=== PATIENT | male | born 1930 | race Caucasian/White ===

== ENCOUNTER 2018-02-15 03:49 | Inpatient (IN) | payer MEDICARE, BC ==
[~2018-02-15] VITALS: Ht 190.5 cm; Wt 86.2 kg
[2018-02-15] VITALS (7 sets, daily range): BP systolic 105–145; BP diastolic 54–75
[~2018-02-15 03:49] MED LIST: ALLOPURINOL 30300 M2 PO; ASPIR 8181 MG PO; AZITHROMYCIN 2250 MG PO; CEFDINIR300 MG PO; COUMADIN 4 MG TA4 M1 PO; LASIX 40 MG TAB40 M2 PO; LEVAQUIN 500 M500 M1 PO; LISINOPRIL5 MG PO; VENTOLIN HFA 1818 GM INH
[2018-02-15 04:14] LABS: HEMATOCRIT 45.9 % (42.0-52.0); HEMOGLOBIN 15.3 gm/dL (14.0-18.0); MCH 32.6 pg (26.0-34.0); MCHC 33.4 g/dL (28.0-37.0); MCV 97.6 fL (80.0-100.0); MPV 8.3 fl. (7.2-11.1); NUCLEATED RBCS 0 /100WBC; PLATELET COUNT* 174 thou/uL (150-400); RDW-CV 14.4 % (10.5-14.5); WBC 16.1 thou/uL (4.0-11.0)
[2018-02-15 04:26] LABS: ANION GAP 12 mmol/L (7-16); BUN 14 mg/dL (7-18); CALCIUM 8.8 mg/dL (8.5-10.1); CHLORIDE 103 mmol/L (98-107); CO2 25 mmol/L (21-32); CREATININE 1.2 mg/dL (0.6-1.3); GLUCOSE 162 mg/dL (70-99); SODIUM 140 mmol/L (136-145)
[2018-02-15 04:27] LABS: APTT 33.7 Seconds (25.0-31.3); INR 1.8; PROTIME 17.5 Seconds (9.20-11.50)
[2018-02-15 04:45] LABS: ALBUMIN 3.7 g/dL (3.4-5.0); ALKALINE PHOSPHATASE 85 U/L (46-116); NT-PRO BRAIN NAT PEPTIDE 1446 pg/mL (<300); SGOT 24 U/L (15-37); SGPT 25 U/L (30-65); TOTAL BILIRUBIN 2.9 mg/dL (<0.1-1.0); TOTAL PROTEIN 7.3 g/dL (6.4-8.2); TROPONIN-I LEVEL <0.06 ng/mL (<0.06)
[2018-02-15 05:06] LABS: URINE BILIRUBIN NEGATIVE (Negative); URINE BLOOD TRACE (Negative); URINE CLARITY CLEAR; URINE COLOR YELLOW; URINE GLUCOSE-RANDOM NEGATIVE (Negative); URINE KETONES NEGATIVE (Negative); URINE LEUKOCYTES-REFLEX NEGATIVE (Negative); URINE NITRITE-REFLEX NEGATIVE (Negative); URINE PROTEIN 1+ (Negative); URINE SPECIFIC GRAVITY 1.015 (1.005-1.030)
[2018-02-15 05:35] LABS: ABSOLUTE LYMPHOCYTES 1.6 thou/uL (0.8-5.3); ABSOLUTE NEUTROPHILS 13.5 thou/uL (1.6-8.1); ANISOCYTOSIS 1+; PLATELET ESTIMATE ADEQUATE; POIKILOCYTOSIS 1+
--- NOTE | 2018-02-15 11:21 | EKG ---
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1930 Requested By: Javon Gross Order Number: [id number] MD: London Castro Measurements Intervals [place] Rate: 96 P: 0 LA: 77 QRS: 7 QRSD: 152 T: -58 QT: 405 QTc: 512 Interpretive Statements Ventricular-paced complexes ventricular fusion beats noted No further rhythm analysis attempted due to paced rhythm Compared to ECG 06/16/2017 08:39:48 intrinsic beats now noted Electronically Signed On 02-15-2018 11:21:12 CDT by London Castro [email or web address] <ELECTRONICALLY SIGNED> By: London Castro MD, [facility] 02/15/18 1121 [id number] London Castro MD, [facility] /EPI
--- NOTE | 2018-02-15 16:43 | 2DMMODE ---
[place] [address] 2 D/M-MODE ECHOCARDIOGRAM Name: ELIZABETH RAMIREZ JR Room: [address] IN [facility]#: [id number] Admission: 02/15/18 Attend Phys: Dain Galvan, Discharge: Date of : [birth year] Date of Service: 02/15/18 1643 Report #: [id number] THIS REPORT FOR: //name// APPROVED REPORT Study performed: 02/15/2018 15:04:08 EXAM: Comprehensive 2D, Doppler, and color-flow Echocardiogram Patient Location: Bedside BSA: 2.11 HR: 90 bpm BP: 135/67 mmHg Other Information Study Quality: Fair Indications Fever Elevated BNP 2D Dimensions IVSd: 13.71 (7-11mm) LVOT Diam: 24.30 (18-24mm) LVDd: 56.08 mm PWd: 12.83 (7-11mm) Ascending Ao: 37.72 (22-36mm) LVDs: 36.77 (25-40mm) Aortic Root: 33.45 mm Volumes Left Atrial Volume (Systole) LA ESV Index: 41.50 mL/m2 Aortic Valve AoV Peak Jerry.: 2.13 m/s AO Peak Gr.: 18.17 mmHg LVOT Max P.65 mmHg AO Mean Gr.: 11.72 mmHg LVOT Mean P.77 mmHg LVOT Max V: 0.95 m/s AO V2 VTI: 43.28 cm LVOT Mean V: 0.60 m/s CASTRO (VTI): 2.16 cm2 LVOT V1 VTI: 20.18 cm AI Sioux: 2.05 m/s2 AI PHT: 560.30 ms Mitral Valve E/A Ratio: 3.61 MV Decel. Time: 132.05 [place] [address] 2 D/M-MODE ECHOCARDIOGRAM Name: ELIZABETH RAMIREZ JR Room: [address]#: [id number] Admission: 02/15/18 Attend Phys: Dain Galvan, Discharge: Date of : [birth year] Date of Service: 02/15/18 1643 Report #: [id number] MV E Max Jerry.: 1.08 m/s MV PHT: 38.29 ms MVA (PHT): 5.75 cm2 TDI E/Lateral E': 18.00 E/Medial E': 21.60 Medial E' Jerry.: 0.05 m/s Lateral E' Jerry.: 0.06 m/s Pulmonary Valve PV Peak Jerry.: 0.79 m/s PV Peak Gr.: 2.52 mmHg Tricuspid Valve RAP Estimate: 10.00 mmHg TR Peak Gr.: 41.65 mmHg RVSP: 51.65 mmHg PA Pressure: 51.65 mmHg Left Ventricle The left ventricle is normal size. There is normal LV segmental wall motion. Mild concentric left ventricular hypertrophy. Left ventricular systolic function is normal. The left ventricular ejection fraction is within the normal range. LVEF is 50-55%. The left ventricular diastolic function is normal. Right Ventricle Right ventricle is mildly dilated. The right ventricular systolic function is normal. Atria Left atrium is mildly dilated. Right atrium is mildly dilated. Aortic Valve Aortic valve is calcified. Mild to moderate aortic regurgitation. Mild aortic stenosis. Mitral Valve There is mitral annular calcification. Mitral valve leaflets are mildly thickened. Mild to moderate mitral regurgitation. No evidence of mitral valve stenosis. Tricuspid Valve The tricuspid valve is normal in structure. Moderate tricuspid regurgitation. estimated pa pressure 50 [place] [address] 2 D/M-MODE ECHOCARDIOGRAM Name: ELIZABETH RAMIREZ JR Room: [address]#: [id number] Admission: 02/15/18 Attend Phys: Dain Galvan, Discharge: Date of : [birth year] Date of Service: 02/15/18 1643 Report #: [id number] The pulmonary valve is normal in structure. There is no pulmonic valvular regurgitation. Great Vessels The aortic root is normal in size. IVC is dilated. Pericardium There is no pericardial effusion. <Conclusion> Mild concentric left ventricular hypertrophy. LVEF is 50-55%. Left atrium is mildly dilated. Right atrium is mildly dilated. Aortic valve is calcified. Mild to moderate aortic regurgitation. Mild aortic stenosis. Mild to moderate mitral regurgitation. Moderate tricuspid regurgitation. estimated pa pressure 50 mm Hg <ELECTRONICALLY SIGNED> By: London Castro MD, FACC 02/15/18 1643 164 164 London Castro MD, FACC /INF
[2018-02-16 04:45] VITALS: BP 106/59
[2018-02-16 05:13] LABS: HEMATOCRIT 39.9 % (42.0-52.0); HEMOGLOBIN 13.4 gm/dL (14.0-18.0); MCH 32.7 pg (26.0-34.0); MCHC 33.6 g/dL (28.0-37.0); MCV 97.1 fL (80.0-100.0); MPV 8.9 fl. (7.2-11.1); RBC 4.11 mil/uL (4.50-6.00); RDW-CV 14.6 % (10.5-14.5); WBC 17.1 thou/uL (4.0-11.0)
[2018-02-16 05:27] LABS: INR 1.8; PROTIME 17.5 Seconds (9.20-11.50)
[2018-02-16 05:48] LABS: ALBUMIN 3.2 g/dL (3.4-5.0); CALCIUM 8.7 mg/dL (8.5-10.1); CREATININE 1.2 mg/dL (0.6-1.3); MAGNESIUM 2.2 mg/dL (1.8-2.4); POTASSIUM 3.9 mmol/L (3.5-5.1); TOTAL BILIRUBIN 1.3 mg/dL (<0.1-1.0); TOTAL PROTEIN 6.2 g/dL (6.4-8.2)
[2018-02-16 07:40] VITALS: BP 107/55
[2018-02-16 11:38] VITALS: BP 105/55
[2018-02-16 15:45] VITALS: BP 121/60
[2018-02-16 20:00] VITALS: BP 98/68
--- NOTE | 2018-02-16 22:15 | CON ---
[address] [address] CONSULTATION Name: ELIZABETH RAMIREZ JR Room: [address] IN [facility]#: [id number] Admission: 02/15/18 Attend Phys: Dain Galvan MD Discharge: Date of : [birth year] Report #: [id number] THIS REPORT FOR: //name// CC: Dain GAMBOA DATE OF SERVICE: 02/15/2018 HISTORY OF PRESENT ILLNESS: This is an 87-year-old male patient who was evaluated by me for any neurological etiology for the patient's dizziness. The patient indicated started about couple of days ago. It is a severe dizziness. It becomes worse when he tries to stand up. It came spontaneously without any trauma. He is still able to walk, although he has some baseline walking difficulty. REVIEW OF SYSTEMS: Indicate that he is chronically anticoagulated because of atrial fibrillation. He had been admitted with sepsis and looks like he had some hypoxemia. He had a prior cataract surgery and a bladder cancer. He does have a history of DE. He has a history of pacemaker. His memory is not affected. He denies any new eye, ENT, cardiac, respiratory, GI, , musculoskeletal, dermatological, hematological, psychiatric, throat, allergic symptom associated with present symptomatology. PAST MEDICAL HISTORY: Positive for pacemaker. FAMILY HISTORY: Negative for early age stroke. SOCIAL HISTORY: He does not smoke or drink any alcohol. PHYSICAL EXAMINATION: Indicate he is alert, responsive, oriented. His speech, concentration, fund of knowledge and memory is at his baseline. His cranial nerve examination 2-12 mostly looks unremarkable. He has some baseline problem with the eyes. His strength, sensation, reflexes and tone are symmetrical. There is no cerebellar sign. There is no meningeal sign. I could not have a very good look at the patient's fundus. He is a very well developed individual who does not have any dysmorphic features of eyes, ears and face. His pulses look palpable. He has no edema, cyanosis or jaundice. There is no thyroid mass. Cardiac examination does not appear to be showing any murmur. He has a history of atrial fibrillation, no respiratory difficulty or rhonchi were noticed. His hearing and vision looks adequate. His blood pressure is 145/68, respiration is 19 and pulse is 77. LABORATORY DATA: Indicate a white count of 16.1. Sodium is normal. He did have a CT scan of the head, which was reviewed and that was mostly unremarkable. IMPRESSION: The patient does have what looks [place] [address] CONSULTATION Name: JAMESELIZABETH JR Room: [address]#: [id number] Admission: 02/15/18 Attend Phys: Dain Galvan MD Discharge: Date of : [birth year] Report #: [id number] He also has infection. I think his dizziness is related to his systemic problems. The neurological causes are difficult to exclude because the patient has a pacemaker and we cannot do an MRI. I discussed that aspect with him. His CT is okay. We will see if he improves by correcting his systemic problems. Not much can be done even if it is a stroke because he is already anticoagulated. RECOMMENDATIONS: 1. Check for postural hypotension. 2. Correction of systemic problem. 3. We will see how he does with physical therapy. 4. We will go ahead and do a carotid Doppler on him to make sure there is no other etiologies going on. I discussed all of it with the patient and the patient wanted to proceed with this testing and we will arrange that. Thank you very much for this referral. <ELECTRONICALLY SIGNED> By: Favio Harrison MD 02/16/18 2215 [id number] [id number] Harrison MD /nt
[2018-02-16 23:39] VITALS: BP 110/61
[2018-02-17 04:32] VITALS: BP 125/90
[2018-02-17 04:50] LABS: HEMOGLOBIN 13.5 gm/dL (14.0-18.0); MCH 32.7 pg (26.0-34.0); MCHC 33.7 g/dL (28.0-37.0); MCV 96.8 fL (80.0-100.0); MPV 8.9 fl. (7.2-11.1); RBC 4.14 mil/uL (4.50-6.00); RDW-CV 14.9 % (10.5-14.5); WBC 17.4 thou/uL (4.0-11.0)
[2018-02-17 05:20] LABS: ALBUMIN 3.3 g/dL (3.4-5.0); CALCIUM 8.7 mg/dL (8.5-10.1); CREATININE 1.1 mg/dL (0.6-1.3); MAGNESIUM 2.1 mg/dL (1.8-2.4); TOTAL BILIRUBIN 0.9 mg/dL (<0.1-1.0); TOTAL PROTEIN 6.2 g/dL (6.4-8.2)
[2018-02-17 06:26] LABS: INR 2.7; PROTIME 25.7 Seconds (9.20-11.50)
[2018-02-17 08:00] VITALS: BP 136/67
[2018-02-17 11:30] VITALS: BP 123/72
[2018-02-17 16:00] VITALS: BP 127/79
[2018-02-17 20:00] VITALS: BP 113/55
[2018-02-18] VITALS: BP 100/47
[2018-02-18 02:07] LABS: GLYCOHEMOGLOBIN (HGB A1C) 6.7 % (4.8-5.6)
[2018-02-18 04:00] VITALS: BP 105/61
[2018-02-18 04:50] LABS: HEMATOCRIT 39.2 % (42.0-52.0); HEMOGLOBIN 13.2 gm/dL (14.0-18.0); MCH 32.8 pg (26.0-34.0); MCHC 33.7 g/dL (28.0-37.0); MCV 97.5 fL (80.0-100.0); RBC 4.02 mil/uL (4.50-6.00); RDW-CV 14.4 % (10.5-14.5); WBC 15.1 thou/uL (4.0-11.0)
[2018-02-18 05:18] LABS: ALBUMIN 2.9 g/dL (3.4-5.0); ALKALINE PHOSPHATASE 66 U/L (46-116); ANION GAP 9 mmol/L (7-16); BUN 22 mg/dL (7-18); CALCIUM 8.4 mg/dL (8.5-10.1); CHLORIDE 105 mmol/L (98-107); CHOLESTEROL 127 mg/dL (<200); CO2 25 mmol/L (21-32); GLUCOSE 190 mg/dL (70-99); HDL CHOLESTEROL 37 mg/dL (>40); LDL CHOLESTEROL 74 mg/dL (<100); POTASSIUM 3.6 mmol/L (3.5-5.1); SGOT 38 U/L (15-37); SGPT 39 U/L (30-65); SODIUM 139 mmol/L (136-145); TC:HDL 3.4 Ratio (Not establshd); TOTAL BILIRUBIN 0.8 mg/dL (<0.1-1.0); TOTAL PROTEIN 5.7 g/dL (6.4-8.2); TRIGLYCERIDE 80 mg/dL (<150); VLDL 16 mg/dL (<40)
[2018-02-18 05:19] LABS: SERUM ASSESSMENT CLEAR
[2018-02-18 05:52] LABS: INR 2.9; PROTIME 27.4 Seconds (9.20-11.50)
[2018-02-18 08:00] VITALS: BP 125/68
[2018-02-18 13:19] VITALS: BP 112/59
[2018-02-18 15:42] VITALS: BP 134/76
[2018-02-18 21:46] VITALS: BP 122/70
[2018-02-19] VITALS (7 sets, daily range): BP systolic 108–135; BP diastolic 53–81
[2018-02-19 04:46] LABS: MCH 33.6 pg (26.0-34.0); MCHC 34.3 g/dL (28.0-37.0); MPV 8.7 fl. (7.2-11.1); RBC 3.87 mil/uL (4.50-6.00); RDW-CV 14.7 % (10.5-14.5); WBC 11.7 thou/uL (4.0-11.0)
[2018-02-19 04:51] LABS: INR 3.2; PROTIME 30.7 Seconds (9.20-11.50)
[2018-02-19 05:39] LABS: ALBUMIN 3.1 g/dL (3.4-5.0); CALCIUM 8.2 mg/dL (8.5-10.1); MAGNESIUM 2.2 mg/dL (1.8-2.4); POTASSIUM 3.5 mmol/L (3.5-5.1); TOTAL BILIRUBIN 1.3 mg/dL (<0.1-1.0); TOTAL PROTEIN 5.5 g/dL (6.4-8.2)
--- NOTE | 2018-02-19 07:51 | CON ---
[address] [address] CONSULTATION Name: ELIZABETH RAMIREZ JR Room: [address] IN [facility]#: [id number] Admission: 02/15/18 Attend Phys: Dain Galvan MD Discharge: Date of : [birth year] Report #: [id number] THIS REPORT FOR: //name// CC: Dain GAMBOA DATE OF SERVICE: 02/18/2018 REQUESTING PHYSICIAN: Dr. Narayanan. REASON FOR CONSULTATION: Abnormal CT scan, possible pneumonia. DISCUSSION: The patient is a pleasant 87-year-old man who is a lifelong nonsmoker. He was admitted after presenting to the Emergency Department on 02/15/2018 with complaints of increasing weakness and dizziness. He had an episode of vomiting as well. He is not aware of any fevers at home. He was seen in the Emergency Department. He was on a couple of liters of oxygen. Did have elevated white blood cell count. He did have a chest x-ray done, which was unremarkable. Cultures were sent as well. He had a CT scan done of his head, which was negative for acute findings, was concerned he had early sepsis. Cultures were obtained. Did have fever, T-max once he was admitted to 100.6. He has now been afebrile. Blood cultures have grown out Staph aureus with sensitivity pending. He is on antibiotics. Repeat blood cultures are pending. Followup chest x-ray continued to show negative acute findings. He did have a CT scan done of his chest yesterday, did reveal some subcarinal adenopathy with a mild adenopathy. Pleural parenchymal scarring was noted, which was similar to findings noted several years ago. He did have some new areas of nodular densities and infiltrates not seen before. Last year, he did have pneumonia and infiltrates noted in the left base at that time and have resolved. Cavitary type lesion adjacent to the diaphragm on the right side looks more prominent than in studies seen previously. Because of that, we were asked to see him. As noted, he is a lifelong nonsmoker. He had not had prior episodes of lung disease that he is aware of; however, several years ago, he was hospitalized and seen by our group when he had inhaled/swallowed some gasoline while trying to clear pump. He did have x-rays and scanning done at that time. Subsequently, it was recommended that he sleep with oxygen. He is not on any breathing treatments at home. He has been fairly compliant with that. He does note he has been quite short of breath over the last couple of days. He has had fair amount of congestion. Some of it has been yellow, occasionally thick. He has also had some minimal nonmassive hemoptysis as well. He is not having any actual chest pain. He does note that he has had area of redness and swelling over his right elbow. He has actually picked at that wound and has pulled off the scab on several occasions. Past medical history is also remarkable for coronary artery disease. Coronary [address] [address] CONSULTATION Name: ELIZABETH RAMIREZ JR Room: [address]#: [id number] Admission: 02/15/18 Attend Phys: Dain Galvan MD Discharge: Date of : [birth year] Report #: [id number] artery bypass grafting surgery in 1995. 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 History of bladder cancer. HOME MEDICATIONS: Warfarin, aspirin, Lasix, lisinopril. REVIEW OF SYSTEMS: ROS was done. Note positives as above. Appetite has been only fair, but he does not believe his weight has changed. He notes he has chronic loose stools dating back to when he was a child. He has not noted any blood in his stools. Has had the increased congestion and cough here recently. Intermittent nonmassive hemoptysis. Again, no chest pain. No actual syncopal episodes. He did feel quite weak and did come close to passing out. He had some lower extremity edema, has been better now since he was admitted. He still feels quite tired. He does note he has felt fatigued. He does run out of energy and breath easily when he tries to exert himself. FAMILY HISTORY: Not pertinent in this elderly man. SOCIAL HISTORY: He is a nonsmoker. Worked in a factory. Did serve in the , but was stateside in the [facility]. PHYSICAL EXAMINATION: GENERAL APPEARANCE: A man who looks younger than stated age. Alert, cooperative. VITAL SIGNS: He currently is on room air. HEENT: Head is normocephalic and atraumatic. Sclerae nonicteric. Mucous membranes are moist. NECK: Negative for adenopathy. No definite JVD is noted. Well-healed median sternotomy scar. HEART: Irregularly irregular. Grade 1-2/6 systolic murmur. No S3 is heard. LUNGS: Reveal breath sounds to be mildly diminished. He has bibasilar crackles heard, right greater than left. No dullness to percussion. No E to A changes. ABDOMEN: Soft, without appreciable hepatosplenomegaly. There is no guarding or rebound. EXTREMITIES: He has no clubbing. Lower extremities are negative for edema. No calf tenderness. SKIN: Warm and dry. NEUROLOGIC: He is alert and oriented x 3. LABORATORY AND X-RAY FINDINGS: Chest x-rays were reviewed. On his plain studies, there is evidence of his prior median sternotomy. Pacemaker. No definite infiltrates, but he does appear to have some prominence of markings consistent with old scarring. On the CT scan done of his chest yesterday, we do have several studies to compare from 2017 and 2016. He does have some chronic changes noted. He does have nodular region, left upper lobe, measuring 7 x 5 mm, which is new. On the right side, there [place] [address] CONSULTATION Name: ELIZABETH RAMIREZ JR Room: [address] IN [facility]#: [id number] Admission: 02/15/18 Attend Phys: Dain Galvan MD Discharge: Date of : [birth year] Report #: [id number] peripheral 26 x 19 mm lesion noted. Also, one adjacent to the diaphragm, which has been seen previously that is a bit more prominent. Blood cultures from 02/15/2018, positive for Staph aureus. Followup cultures sent yesterday are pending. His chemistry profile, BUN is 22, creatinine of 1.0, potassium is 3.6. ProBNP just over 1400. Coag studies did reveal today an INR of 2.9. White blood cell count on admission 16,100 and 15,100 today. Hemoglobin 13.2, hematocrit 39.2. Echocardiogram reveals an EF of 50-55%. Has some mild LVH. RV is dilated. Systolic function was thought to be normal. He has mild to moderate aortic regurgitation. Mild aortic stenosis. He does have mild to moderate mitral regurgitation. Estimated pulmonary artery systolic pressure is 50 mmHg. IMPRESSION: 1. Peripheral nodular densities noted on CT chest. I suspect these could be septic emboli. With this Staphylococcus aureus bacteremia, this is location I would expect to see changes. 2. Staph aureus bacteremia. Questionable source is probably the lesion he has on his right elbow. Anticipate will need long-term antibiotics. 3. Coronary artery disease, status post coronary artery bypass grafting surgery. 4. Atrial fibrillation. 5. Status post pacemaker placement. 6. History of nocturnal hypoxemia, on nighttime oxygen at home. RECOMMENDATIONS: 1. Should be able to wean the steroids. 2. Continue with the DuoNeb. 3. Continue antibiotics. 4. Consider Infectious Disease consult as well. 5. Will need repeat imaging of his chest. Depending on how he does clinically, anticipated minimum, he should have a followup CT chest in 6-8 weeks. <ELECTRONICALLY SIGNED> By: Meka Darden MD 02/19/18 0751 [id number] [id number] Darden MD /nt
--- NOTE | 2018-02-19 07:58 | CON ---
[address] [address] CONSULTATION Name: ELIZABETH RAMIREZ JR Room: [address] IN [facility]#: [id number] Admission: 02/15/18 Attend Phys: Dain Galvan MD Discharge: Date of : [birth year] Report #: [id number] THIS REPORT FOR: //name// CC: Dain GAMBOA DATE OF SERVICE: 02/18/2018 INFECTIOUS DISEASE CONSULTATION ATTENDING PHYSICIAN: Dr. Dano Vaughan. REASON FOR EVALUATION: Staphylococcus aureus septicemia. HISTORY OF PRESENT ILLNESS: Chart reviewed, patient examined. This is an 87-year-old with history of known COPD with emphysematous component, also has cardiac disease, who was admitted through the Emergency Room and had onset of dizziness with associated nausea, emesis. He did have some chills as well as temperature elevations. This occurred fairly abruptly a few days ago, had a significant change in his overall pulmonary status. As per evaluation, he did undergo blood culture testing, which is now with growth of 2/2 Staphylococcus aureus, awaiting susceptibilities. He has been empirically on ceftriaxone and vancomycin. Overall, he feels improved. He does have a chronic eschar involving the olecranon processes of the right elbow, not certain about how this happened roughly a month ago; however, he has been picking at the scab. ALLERGIES: None known. MEDICATIONS: Include ipratropium and albuterol inhaler, methylprednisolone, glyburide, insulin, vancomycin, warfarin, famotidine, lisinopril, furosemide, aspirin, ceftriaxone. PAST MEDICAL HISTORY: Atrial fibrillation, history of pacemaker, has aortocoronary bypass grafting, myocardial infarction in 1995, history of bladder cancer. SOCIAL HISTORY: Nonsmoker, no ethanol. FAMILY HISTORY: Noncontributory. REVIEW OF SYSTEMS: As above. PHYSICAL EXAMINATION: GENERAL: Appears somewhat chronically ill, pleasant, cooperative, generally tracks well. He is in [id number] distress, appears mildly undernourished. VITAL SIGNS: Temperature 97.6, pulse 102, respirations 20, [place] [address] CONSULTATION Name: ELIZABETH RAMIREZ JR Room: [address]#: [id number] Admission: 02/15/18 Attend Phys: Dain Galvan MD Discharge: Date of : [birth year] Report #: [id number] 112/59. SKIN: Warm, dry, no rashes. HEENT: Otherwise, unremarkable. NECK: Supple. LUNGS: Scattered crackles at the bases. HEART: Regular. I do not appreciate a murmur. ABDOMEN: Soft, mildly distended. There are no peritoneal signs. GENITOURINARY: Deferred. RECTAL: Deferred. LABORATORY DATA: Lactic acid has been elevated, most recently at 3.7. Blood cultures initially growth of Staph aureus. Repeat cultures from 02/17/2018, there are no growth, roughly 24 hours. PT of 24.7, INR of 2.9. Electrolytes: Sodium 139, potassium 3.6, chloride 105, bicarbonate 25, anion gap of 9, BUN and creatinine 22 and 1.0, glucose of 190. LFTs unremarkable. Albumin of 2.9, total protein 5.7. Estimated GFR of 71. CT chest without contrast showed small area of infiltrate or atelectasis in each lung. Minimal chronic pleural thickening and calcification. ASSESSMENT: Staphylococcus aureus septicemia, suspect skin source. At this point, would continue antibiotics with vancomycin, likely discontinue the ceftriaxone. I would expect monotherapy to be adequate, we will adjust as needed pending on susceptibilities. Hopefully, these second round of cultures will clear, attributed to a low-grade bacteremia. At this point, it certainly is quite tenuous. I instructed to him that he will likely need up to 4 weeks of systemic antimicrobials. We will monitor expectantly. <ELECTRONICALLY SIGNED> By: Viet Pagan MD 02/19/18 0758 1356 1931Jotere Pagan MD /nt
[2018-02-20 03:49] VITALS: BP 116/60
[2018-02-20 08:00] VITALS: BP 117/66
[2018-02-20 08:01] LABS: PROTIME 38.4 Seconds (9.20-11.50)
[2018-02-20] MEDS ORDERED: GLYBURIDE 2.52.5 MG PO (11:01)
[2018-02-20] MEDS ORDERED: PREDNISONE 20 M20 MG PO (11:01)
[2018-02-20 11:18] VITALS: BP 117/66
[2018-02-20] MEDS ORDERED: ANCEF 1GM1 GM/50 M1 IVPB (13:20)
== END 2018-02-20 15:09 | disposition home health service (06) | DRG 871 ==
LOC: M.ERS 03:49 → M.2W 06:26 → M.TBA-ER 06:26 → M.2W 09:19
PROVIDERS: Family Medicine; Internal Medicine; ADMIT Internal Medicine
PROC: 02HV33Z Insertion of Infusion Device into Superior Vena Cava, Percutaneous Approach (ICD-10-PCS; principal; 2018-02-19)
DX: A41.01 Sepsis due to Methicillin susceptible Staphylococcus aureus (principal); J18.9 Pneumonia, unspecified organism; J44.1 Chronic obstructive pulmonary disease with (acute) exacerbation; L03.113 Cellulitis of right upper limb; E87.2 Acidosis; I76 Septic arterial embolism; J44.0 Chronic obstructive pulmonary disease with (acute) lower respiratory infection; I50.32 Chronic diastolic (congestive) heart failure; I48.91 Unspecified atrial fibrillation; I25.10 Atherosclerotic heart disease of native coronary artery without angina pectoris; I08.3 Combined rheumatic disorders of mitral, aortic and tricuspid valves; I65.29 Occlusion and stenosis of unspecified carotid artery; E11.9 Type 2 diabetes mellitus without complications; Z95.0 Presence of cardiac pacemaker; Z95.1 Presence of aortocoronary bypass graft; I25.2 Old myocardial infarction; Z98.49 Cataract extraction status, unspecified eye; Z79.899 Other long term (current) drug therapy; Z79.01 Long term (current) use of anticoagulants; Z79.82 Long term (current) use of aspirin; Z85.51 Personal history of malignant neoplasm of bladder